=== PATIENT | female | born 1985 | race Hispanic/Latino ===

== ENCOUNTER 2019-06-21 20:49 | Emergency (ER) | payer BC ==
[2019-06-21 23:03] LABS: Urine Blood 3+ (NEG); Urine Glucose NEGATIVE (NEG); Urine Protein 1+ (NEG)
[2019-06-21 23:56] LABS: Absolute Lymphocytes (CBC) 3.4 K/uL (0.7-4.9); Basophils % 0.4 % (0-1.3); Hematocrit 38.2 % (36.0-45.0); Lymphocytes % 23.6 % (15.3-44.8); MPV 8.5 fL (7.6-11.3); RBC Red Blood Cell Count 4.23 M/uL (3.86-4.86)
[2019-06-22 00:10] LABS: Potassium 3.4 mmol/L (3.5-5.1)
--- NOTE | 2019-06-22 03:14 | ER ---
Nurse's Notes [facility] Name: Maya Amaya Age: 33 yrs Sex: Female : 1985 Arrival Date: 06/21/2019 Time: 20:52 Bed 20 Private MD: Diagnosis: Abnormal uterine and vaginal bleeding, unspecified;Other and unspecified ovarian cysts;Lower abdominal pain, unspecified Presentation: 06/21 21:27 Presenting complaint: Patient states: that she started bleeding today after gym. States fc she had her period 2 weeks ago. Is concerned because she is having clots today and is also having lower abd cramping. Transition of care: patient was not received from another setting of care. Onset of symptoms was June 21, 2019 at 20:30. Risk Assessment: Do you want to hurt yourself or someone else? Patient reports no desire to harm self or others. Initial Sepsis Screen: Does the patient meet any 2 criteria? No. Patient's initial sepsis screen is negative. Does the patient have a suspected source of infection? No. Patient's initial sepsis screen is negative. Care prior to arrival: None. 21:27 Method Of Arrival: Ambulatory 21:27 Acuity: DANGELO 4 Triage Assessment: 21:31 General: Appears comfortable, slender, Behavior is calm, cooperative, appropriate for age. Pain: Complains of pain in suprapubic area Pain currently is 2 out of 10 on a pain scale. Quality of pain is described as aching, crampy, Pain began 1 hour ago. Is continuous. EENT: No deficits noted. Neuro: Level of Consciousness is awake, alert, obeys commands, Oriented to person, place, time, situation, Appropriate for age. Cardiovascular: No deficits noted. Respiratory: No deficits noted. GI: No deficits noted. : Reports vaginal bleeding that is with clots, moderate flow. Derm: Skin is pink, warm \T\ dry. Musculoskeletal: Circulation, motion, and sensation intact. Capillary refill < 3 seconds, Range of motion: intact in all extremities. 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 - Social history:: Smoking status: Patient/guardian denies using tobacco, Patient/guardian denies using alcohol, street drugs. - Ebola Screening: : Patient negative for fever greater than or equal to 101.5 degrees Fahrenheit, and additional compatible Ebola Virus Disease symptoms Patient denies exposure to infectious person Patient denies travel to an Ebola-affected area in the 21 days before illness onset. Screenin/05 00:00 Abuse screen: Denies threats or abuse. Denies injuries from another. Nutritional mg2 screening: No deficits noted. Tuberculosis screening: No symptoms or risk factors identified. Fall Risk IV access (20 points). Assessment: 06/21 23:59 General: Appears in no apparent distress. comfortable, Behavior is calm, cooperative. mg2 Pain: Denies pain. Neuro: Level of Consciousness is awake, alert, obeys commands, Oriented to person, place, time, situation. Cardiovascular: Capillary refill < 3 seconds Patient's skin is warm and dry. Respiratory: Airway is patent Respiratory effort is even, unlabored, Respiratory pattern is regular, symmetrical. GI: No signs and/or symptoms were reported involving the gastrointestinal system. : Reports vaginal bleeding that is moderate flow, since today. EENT: No signs and/or symptoms were reported regarding the EENT system. Derm: Skin is intact, is healthy with good turgor, Skin is pink, warm \T\ dry. normal. Musculoskeletal: Circulation, motion, and sensation intact. Capillary refill < 3 seconds. 06/22 02:25 Reassessment: Pt has gone to CT Scan via wheelchair. fc 03:00 General: Appears in no apparent distress. comfortable, Behavior is calm, cooperative, fc appropriate for age. Pain: Denies pain. Neuro: Level of Consciousness is awake, alert, obeys commands, Oriented to person, place, time, situation, Appropriate for age. Cardiovascular: No deficits noted. Respiratory: No deficits noted. GI: No deficits noted. : No deficits noted. : Reports vaginal bleeding that is with clots, spotty. EENT: No deficits noted. Derm: Skin is pink, warm \T\ dry. Musculoskeletal: Circulation, motion, and sensation intact. Capillary refill < 3 seconds, Range of motion: intact in all extremities. Vital Signs: 06/21 21:32 BP 120 / 85; Pulse 66; Resp 20; Temp 98.1(O); Pulse Ox 98% on R/A; Weight 63.5 kg (R); fc Height 5 ft. 2 in. (157.48 cm) (R); Pain 2/10; 06/22 00:01 BP 122 / 70; Pulse 57; Resp 18; Pulse Ox 100% on R/A; mg2 01:48 BP 122 / 77; Pulse 60; Resp 18; Pulse Ox 98% on R/A; mg2 02:48 BP 109 / 76; Pulse 66; Resp 16; Pulse Ox 99% on R/A; rv 03:52 BP 117 / 81; Pulse 68; Resp 15; Pulse Ox 98% on R/A; rv 06/21 21:32 Body Mass Index 25.61 (63.50 kg, 157.48 cm) fc ED Course: 06/21 20:52 Patient arrived in ED. ds1 21:29 Triage completed. fc 21:32 Arm band placed on Patient placed in waiting room, on a stretcher. fc 22:53 Patient taken to ultrasound. via wheelchair. lc3 23:24 US Transvaginal Study (Probe) In Process Unspecified. EDMS 23:34 Enrike Escobedo RN is Primary Nurse. mg2 23:45 Trevor Guidry PA is PHCP. cp 23:45 Álvaro Eugene MD is Attending Physician. cp 06/22 00:01 Patient has correct armband on for positive identification. Placed in gown. Bed in low mg2 position. Call light in reach. Side rails up X 1. Pulse ox on. NIBP on. Door closed. Warm blanket given. 00:01 Inserted saline lock: 22 gauge in right antecubital area, using aseptic technique. mg2 Blood collected. 01:12 Assist provider with pelvic exam: Set up pelvic tray. Performed by Trevor KING mg2 Specimens sent to lab. Patient tolerated well. 02:36 CT Abd/Pelvis - IV Contrast Only In Process Unspecified. EDMS 03:58 IV discontinued. rv Administered Medications: No medications were administered Outcome: 03:14 Discharge ordered by . cp 03:53 Discharged to home ambulatory. rv 03:53 Condition: good 03:53 Discharge instructions given to patient, Instructed on discharge instructions, follow up and referral plans. medication usage, Demonstrated understanding of instructions, follow-up care, medications, Prescriptions given X 1. 03:59 Patient left the ED. rv Signatures: Dispatcher [employer] EDMT Judith Hunt RN RN Isa Patrick ds1 Trevor Guidry PA PA cp Cunningham, Laulita lc3 Gardose, Michele, RN RN mg2 Vasquez Robb RN RN rv Corrections: (The following items were deleted from the chart) 06/21 21:33 21:32 LMP 06/07/2019 [facility] 06/22 01:12 00:01 No provider procedures requiring assistance completed. mg2 mg2
--- NOTE | 2019-06-22 03:15 | EDPHYS ---
Physician Documentation [facility] Name: Maya Amaya Age: 33 yrs Sex: Female : 1985 Arrival Date: 06/21/2019 Time: 20:52 Bed 20 Private MD: ED Physician Álvaro Eugene HPI: 06/21 23:40 This 33 yrs old Female presents to ER via Ambulatory with complaints of cp Vaginal Bleeding. 23:40 The patient presents with vaginal bleeding that is with clots. Onset: The cp symptoms/episode began/occurred suddenly, today. Associated signs and symptoms: Pertinent positives: cramping, lower abdomen pain, Pertinent negatives: diarrhea, dysuria, fever. Severity of symptoms: in the emergency department the symptoms have improved, vaginal bleeding has improved. Patient reports sudden onset of vaginal bleeding with passage of clots and lower abdominal pain this evening. Patient reports she was concerned because she had regular menstrual bleeding that is usual light 2 weeks ago. 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 - Social history:: Smoking status: Patient/guardian denies using tobacco, Patient/guardian denies using alcohol, street drugs. - Ebola Screening: : Patient negative for fever greater than or equal to 101.5 degrees Fahrenheit, and additional compatible Ebola Virus Disease symptoms Patient denies exposure to infectious person Patient denies travel to an Ebola-affected area in the 21 days before illness onset. ROS: 23:40 Constitutional: Negative for body aches, chills, fever, poor PO intake. cp 23:40 Eyes: Negative for injury, pain, redness, and discharge. cp 23:40 Cardiovascular: Negative for chest pain, palpitations. 23:40 Respiratory: Negative for cough, wheezing. 23:40 Abdomen/GI: Positive for abdominal pain, abdominal cramps, of the lower abdomen, Negative for vomiting, diarrhea, constipation, black/tarry stool, rectal bleeding. 23:40 : Positive for vaginal bleeding, Negative for urinary symptoms. 23:40 Skin: Negative for rash. 23:40 Neuro: Negative for altered mental status, dizziness, syncope, weakness. 23:40 All other systems are negative. Exam: 23:45 Constitutional: The patient appears in no acute distress, alert, awake, non-toxic, well cp developed, well nourished. 23:45 Head/Face: Normocephalic, atraumatic. cp 23:45 Eyes: Periorbital structures: appear normal, Conjunctiva: normal, no exudate, no injection, Sclera: no appreciated abnormality, Lids and lashes: appear normal, bilaterally. 23:45 ENT: External ear(s): are unremarkable, Nose: is normal, Mouth: Lips: moist, Oral mucosa: pink and intact, moist, Posterior pharynx: is normal, airway is patent, no erythema, no exudate. 23:45 Neck: ROM/movement: is normal, is supple, without pain, no range of motions limitations, no nuchal rigidity. 23:45 Chest/axilla: Inspection: normal, Palpation: is normal, no crepitus, no tenderness. 23:45 Cardiovascular: Rate: normal, Rhythm: regular. 23:45 Respiratory: the patient does not display signs of respiratory distress, Respirations: normal, no use of accessory muscles, no retractions, no splinting, no tachypnea, labored breathing, is not present, Breath sounds: are clear throughout, no decreased breath sounds, no stridor, no wheezing. 23:45 Abdomen/GI: Inspection: abdomen appears normal, Bowel sounds: active, all quadrants, Palpation: soft, in all quadrants, mild abdominal tenderness, in the right lower quadrant and left lower quadrant, rebound tenderness, is not appreciated, involuntary guarding, is not appreciated. 23:45 Back: pain, is absent, ROM is normal. 23:45 Skin: no rash present. 06/22 01:08 : Pelvic Exam: External exam: is normal, Speculum exam: mild bleeding, no cervicitis, cp os that is closed, no tissue in cervix is seen, no tissue in vagina is seen, bimanual exam reveals no cervical motion tenderness, os that is closed, no uterine tenderness, no adnexa tenderness or masses bilaterally, discharge, bloody, the nurse was present for the exam, Sexual behavior: the patient is sexually active, and reports a single partner. Vital Signs: 06/21 21:32 BP 120 / 85; Pulse 66; Resp 20; Temp 98.1(O); Pulse Ox 98% on R/A; Weight 63.5 kg (R); fc Height 5 ft. 2 in. (157.48 cm) (R); Pain 2/10; 06/22 00:01 BP 122 / 70; Pulse 57; Resp 18; Pulse Ox 100% on R/A; mg2 01:48 BP 122 / 77; Pulse 60; Resp 18; Pulse Ox 98% on R/A; mg2 02:48 BP 109 / 76; Pulse 66; Resp 16; Pulse Ox 99% on R/A; rv 03:52 BP 117 / 81; Pulse 68; Resp 15; Pulse Ox 98% on R/A; rv 06/21 21:32 Body Mass Index 25.61 (63.50 kg, 157.48 cm) fc MDM: 00:00 Patient medically screened. cp 03:10 Data reviewed: vital signs, nurses notes, lab test result(s), radiologic studies, CT cp scan, ultrasound, and as a result, I will discharge patient. 06/21 22:44 Order name: Urine Dipstick--Ancillary (enter results); Complete Time: 00:09 em1 06/21 22:44 Order name: Urine --Ancillary (enter results); Complete Time: 00:09 em1 06/21 23:39 Order name: Abo/rh Typing; Complete Time: 01:29 mg2 06/21 23:39 Order name: Basic Metabolic Panel; Complete Time: 00:11 mg2 06/22 00:11 Interpretation: Normal except: K 3.4; GFR 71. cp 06/21 23:39 Order name: CBC with Diff; Complete Time: 00:09 mg2 06/22 00:09 Interpretation: Normal except: WBC 14.6. cp 06/22 00:11 Order name: GC (GONORR/CHLAMYDIA) Probe cp 06/21 22:23 Order name: Urine Dipstick-Ancillary (obtain specimen); Complete Time: 22:43 cp 06/21 22:23 Order name: Urine Test (obtain specimen); Complete Time: 22:43 cp 06/21 22:47 Order name: US Transvaginal Study (Probe) cp 06/21 23:39 Order name: IV Saline Lock; Complete Time: 23:53 mg2 06/21 23:39 Order name: Labs collected and sent; Complete Time: 23:53 mg2 06/21 23:39 Order name: NPO; Complete Time: 23:53 mg2 06/22 00:11 Order name: Wet Prep; Complete Time: 01:29 cp 06/22 01:30 Interpretation: Reviewed. cp 06/22 00:11 Order name: CT Abd/Pelvis - IV Contrast Only cp 06/22 00:11 Order name: Pelvic Exam Setup; Complete Time: 01:11 cp Administered Medications: No medications were administered Disposition: 03:15 Chart complete. cp 06:07 Co-signature as Attending Physician, Álvaro Eugene MD. [email or web address] Disposition: 06/22/19 03:14 Discharged to Home. Impression: Abnormal uterine and vaginal bleeding, unspecified, Other and unspecified ovarian cysts, Lower abdominal pain, unspecified. - Condition is Stable. - Discharge Instructions: Abdominal Pain, Adult, Abnormal Uterine Bleeding, Ovarian Cyst, Dysfunctional Uterine Bleeding. - Prescriptions for Ibuprofen 800 mg Oral Tablet - take 1 tablet by ORAL route every 8 hours As needed take with food; 30 tablet. - Medication Reconciliation Form, Thank You Letter, Antibiotic Education, Prescription Opioid Use form. - Follow up: Private Physician; When: 1 week; Reason: Recheck today's complaints. - Problem is new. - Symptoms have improved. Signatures: Dispatcher [employer] Álvaro Lopez MD MD pkJudith Orona RN RN fc Page, Corey, PA PA cp Enrike Escobedo RN RN mg2 Vasquez Robb RN RN rv Corrections: (The following items were deleted from the chart) 03:59 03:14 06/22/2019 03:14 Discharged to Home. Impression: Abnormal uterine and vaginal rv bleeding, unspecified; Other and unspecified ovarian cysts; Lower abdominal pain, unspecified. Condition is Stable. Forms are Medication Reconciliation Form, Thank You Letter, Antibiotic Education, Prescription Opioid Use. Follow up: Private Physician; When: 1 week; Reason: Recheck today's complaints. Problem is new. Symptoms have improved. cp
[2019-06-22 04:04] VITALS: TEMP 98.1
[2019-06-22 04:09] VITALS: BP 117/81; O2SAT 98
--- NOTE | 2019-06-22 10:58 | RAD REPORT ---
EXAM DESCRIPTION: US - Transvaginal Study Probe - 06/21/2019 11:24 pm CLINICAL HISTORY: Vaginal bleeding COMPARISON: 2016 FINDINGS: The uterus measures 9 x 5 x 5cm. The endometrial stripe measures 12 millimeters. A fibroid is not seen. 1.9 centimeter heterogeneous structure is present within the cervical canal The patient's known tubal occlusion coils were not well imaged on this exam Right ovary normal in size and echotexture. It contains a 1.7 centimeter follicle. The left ovary was not seen. Right and left adnexal unremarkable. No significant free fluid is seen. IMPRESSION: 1.9 centimeter heterogeneous structure within the cervical canal may represent blood or mass. Followup ultrasound in a couple months recommended for re-evaluation
[2019-06-25 06:54] LABS: C.trachomatis RNA,TMA Not Detected (Not Detected)
--- NOTE | 2019-06-25 13:58 | RAD REPORT ---
EXAM DESCRIPTION: CT - Abdomen Pelvis W Contrast - 06/22/2019 4:28 am CLINICAL HISTORY: Lower abdominal pain. Vaginal bleeding. COMPARISON: None. TECHNIQUE: Axial CT imaging of the abdomen and pelvis performed with intravenous contrast. Reformatt ed coronal and sagittal images reviewed. A dose reduction technique was utilized with automated exposure control according to patient size. FINDINGS: Clear lung bases. Heart is normal in size. The liver is normal in size, contour, and attenuation. Normal gallbladder, spleen, pancreas, adrenal glands, and kidneys. Normal aorta caliber. Mesenteric vessels appear normal. Normal caliber inferior vena cava. No retroperitoneal lymphadenopathy. Normal appearance of the stomach and small bowel loops. Normal appendix in the right lower quadrant i n retrocecal position. There is moderate fecal loading throughout the colon. No mesenteric edema, asc ites, or free air. Normal gallbladder. There is complex debris within the lower uterine segment and endocervical canal. There is fluid noted throughout the endometrial cavity. Follicular changes are present within both ov bonnie. There are bilateral proximal fallopian tube Essure inserts. There is no pelvic free fluid or a denopathy. There is a mild diffuse L4-5 and L5-S1 disc bulge. Normal lumbar spine. Normal appearance of the bony pelvis. There is absence the subcutaneous tissues of the proximal right thigh musculature. This is n ot fully imaged. IMPRESSION: 1. Heterogeneous debris and fluid within the endometrial cavity and lower uterine segmen t compatible with blood products. Correlate with hCG as in progress or retained products of conception could also have this appearance. 2. Mild constipation. 3. Absence of the anterior subcutaneous tissues in the proximal right thigh could be sequela of remot e trauma. Correlate with physical exam findings and history.. 4. Mild L4-5 and L5-S1 diffuse disc bulge. Electronically signed by: Brittany Mario DO 06/22/2019 2:48 AM CDT Due to temporary technical issues with the PACS/Fluency reporting system, reports are being signed by the in house radiologist as a courtesy to ensure prompt reporting. The interpreting radiologist is f jessicaly responsible for the content of the report.
== END 2019-06-22 03:59 | disposition home or self-care (01) ==
LOC: ER 20:49
DX: N93.9 Abnormal uterine and vaginal bleeding, unspecified (principal); N83.299 Other ovarian cyst, unspecified side; I10 Essential (primary) hypertension
CPT/HCPCS: 85025; 80048; 36415; 86900; 81025; 86901; 87210; 81003; 87590; 87490; 74177; 76830; 99284; Q9967